=== PATIENT | female | born 1985 | race Caucasian/White ===

== ENCOUNTER 2020-06-24 05:57 | Emergency (ER) | payer OTHER ==
[~2020-06-24] VITALS: Ht 165.1 cm; Wt 95.3 kg
[2020-06-24 06:04] VITALS: Ht 165.1 cm; Wt 95.3 kg
[2020-06-24] MEDS ORDERED: PEPCID AC20 M2 PO (06:23)
[2020-06-24] MEDS ORDERED: MAALOX MAXIMUM355 ML PO (06:23)
[2020-06-24 06:52] LABS: BASOPHIL % 0.6 % (0.2-1.3); PLATELET COUNT 350 x10^3mcL (179-408); RED CELL DISTRIBUTION WIDTH 11.9 % (12.3-17.7)
[2020-06-24 07:03] LABS: CALCIUM 8.9 mg/dL (8.5-10.1); CARBON DIOXIDE 28.2 mmol/L (21-32); CHLORIDE SERUM 99 mmol/L (98-107); CREATININE SERUM 0.6 mg/dL (0.6-1.0); GFR1 > 60 mL/min; GLUCOSE SERUM 276 mg/dL (74-106); POTASSIUM SERUM 4.8 mmol/L (3.5-5.1); SODIUM SERUM 135 mmol/L (136-145)
[2020-06-24 07:08] LABS: ALKALINE PHOSPHATASE 68 U/L (46-116); ALT/SGPT 20 U/L (14-59); AST/SGOT 5 U/L (15-37); BILIRUBIN TOTAL 0.55 mg/dL (0.20-1.00); LIPASE 657 IU/L (73-393); TOTAL PROTEIN, SERUM 6.8 g/dL (6.4-8.2)
[2020-06-24 07:10] LABS: ALBUMIN 3.2 g/dL (3.4-5.0)
[2020-06-24 07:51] VITALS: BP 127/75
== END 2020-06-24 07:51 | disposition home or self-care (01) ==
LOC: ED 05:57
PROVIDERS: Student in an Organized Health Care Education/Training Program
DX: K29.70 Gastritis, unspecified, without bleeding (principal); K21.9 Gastro-esophageal reflux disease without esophagitis; K85.90 Acute pancreatitis without necrosis or infection, unspecified; E11.9 Type 2 diabetes mellitus without complications